=== PATIENT | female | born 1970 | race African-American/Black ===

== ENCOUNTER 2020-08-13 10:06 | Outpatient (REF) | payer OTHER, SELFPAY ==
[2020-08-13 10:58] LABS: MANUAL DIFF FLAG NO
[2020-08-13 11:35] LABS: Basophils Percent Auto 0.3 % (0-2); Eosinophils Absolute Auto 0.1 X10*3/uL (0.0-0.4); Eosinophils Percent Auto 1.5 % (0-4); Hematocrit 33.9 % (37-47); Hemoglobin 11.2 g/dl (12.0-16.0); Imm Gran Abs Auto 0.01 X10*3/uL (0.00-0.03); Imm Gran Pct Auto 0.2 % (0.0-0.4); Lymphocytes Absolute Auto 2.5 X10*3/uL (1.2-4.9); Lymphocytes Percent Auto 41.9 % (20-40); Mean Corpuscular Volume 90.9 fL (80-98); Monocytes Absolute Auto 0.5 X10*3/uL (0.1-1.2); Monocytes Percent Auto 8.5 % (2-11); Neutrophils Absolute Auto 2.8 X10*3/uL (2.0-8.3); Neutrophils Percent Auto 47.6 % (45-73); Platelet Count 209 X10*3/uL (160-400); Red Blood Count 3.73 X10*6/uL (4.20-5.50); Red Cell Distribution Width 15.1 % (11.0-16.0); White Blood Count 5.9 X10*3/uL (4.8-10.8)
[2020-08-13 11:41] LABS: Estimated Average Glucose 94 mg/dL; Hemoglobin A1c % 4.9 %
[2020-08-13 11:42] LABS: Alanine Aminotransferase 14 U/L (0-31); Albumin Level 3.9 g/dL (3.5-5.0); Alkaline Phosphatase 53 U/L (39-117); Aspartate Amino Transferase 13 U/L (5-31); Bilirubin Total 0.7 mg/dL (0.0-1.0); Blood Urea Nitrogen 12 mg/dL (9-16); C Reactive Protein 0.06 mg/dL (< or = 0.50); Calcium 8.6 mg/dL (8.4-10.2); Cholesterol 132 mg/dL; Estimated Glomerular Filt Rate > 60; Glucose Random 93 mg/dL (60-115); HDL Cholesterol 53 mg/dL; Iron 66 mcg/dL (30-160); LDL Cholesterol Calculated 65 mg/dl; Percent Iron Saturation 20 % (15-50); Total Iron Binding Capacity 335 mcg/dL (228-428); Total Protein 6.1 g/dL (6.5-8.0); Triglycerides 70 mg/dL; Unsaturated Iron Binding 269 ug/dL
[2020-08-13 11:56] LABS: Anion Gap 10 (12-20); Carbon Dioxide 26 mmol/L (22-29); Chloride 108 mmol/L (96-108); Potassium 3.7 mmol/l (3.3-5.1); Sodium 140 mmol/L (135-145)
[2020-08-13 12:06] LABS: Ferritin 46 ng/mL (10-250); Vitamin D 25-OH Total 22.3 ng/mL (>30)
[2020-08-13 12:21] LABS: Folate 8.2 ng/mL (> or = 4.0); Vitamin B12 649 pg/mL (200-900)
[2020-08-13 13:06] LABS: TSH reflex Free T4 0.52 mIU/mL (0.32-4.0)
[2020-08-14 08:06] LABS: Insulin Level Total 4.4 uIU/mL
[2020-08-15 02:11] LABS: Calcium (PTHI) 8.7 mg/dL (8.6-10.2); PTHI 39 pg/mL (14-64)
[2020-08-18 22:21] LABS: Vitamin A 40 mcg/dL (38-98)
[2020-08-19 06:40] LABS: Vitamin B1 9 nmol/L (8-30)
[2020-08-19 07:01] LABS: Zinc 67 mcg/dL (60-130)
== END 2020-08-13 10:07 | disposition home or self-care (01) ==
LOC: HO.LAB 10:06
PROVIDERS: PCP Internal Medicine; Visit Provider Physician Assistant
DX: K90.49 Malabsorption due to intolerance, not elsewhere classified (principal)
CPT/HCPCS: 36415; 80053; 80061; 82306; 82607; 82728; 82746; 83036; 83525; 83540; 83970; 84425; 84443; 84590; 84630; 85025; 86140

== ENCOUNTER → 2020-09-08 13:19 | Outpatient (BNVA) | payer OTHER, SELFPAY | PROVIDERS: PCP Internal Medicine; Visit Provider Dietitian, Registered | DX: Z76.89 Persons encountering health services in other specified circumstances (principal) ==

== ENCOUNTER → 2020-11-12 08:06 | Outpatient (BNVA) | payer OTHER, SELFPAY | PROVIDERS: PCP Internal Medicine; Referring Provider Internal Medicine; Visit Provider Internal Medicine | DX: Z76.89 Persons encountering health services in other specified circumstances (principal) ==

== ENCOUNTER → 2021-03-05 08:13 | Outpatient (BNVA) | payer OTHER, SELFPAY | PROVIDERS: PCP Internal Medicine; Visit Provider Physician Assistant | DX: E66.9 Obesity, unspecified (principal); K91.2 Postsurgical malabsorption, not elsewhere classified; Z90.3 Acquired absence of stomach [part of]; Z68.36 Body mass index [BMI] 36.0-36.9, adult | CPT/HCPCS: Q3014 ==

== ENCOUNTER → 2021-05-10 07:58 | Outpatient (BNVA) | payer MEDICAID, SELFPAY | PROVIDERS: Visit Provider Internal Medicine ==

== ENCOUNTER → 2021-08-03 08:13 | Outpatient (BNVA) | payer MEDICAID, SELFPAY | PROVIDERS: PCP Internal Medicine; Visit Provider Physician Assistant Surgical ==

== ENCOUNTER → 2021-08-10 08:44 | Outpatient (BNVA) | payer MEDICAID, SELFPAY | PROVIDERS: PCP Internal Medicine; Visit Provider Physician Assistant Surgical ==

== ENCOUNTER → 2021-09-06 08:08 | Outpatient (BNVA) | payer MEDICAID, SELFPAY | PROVIDERS: PCP Internal Medicine; Visit Provider Physician Assistant Surgical ==

== ENCOUNTER 2021-09-09 13:51 | Outpatient (REF) | payer MEDICAID, SELFPAY ==
[2021-09-09 14:08] LABS: MANUAL DIFF FLAG NO
[2021-09-09 14:17] LABS: Basophils Percent Auto 0.4 % (0-2); Eosinophils Absolute Auto 0.1 X10*3/uL (0.0-0.4); Eosinophils Percent Auto 1.2 % (0-4); Hemoglobin 12.3 g/dl (12.0-16.0); Imm Gran Abs Auto 0.02 X10*3/uL (0.00-0.03); Imm Gran Pct Auto 0.3 % (0.0-0.4); Lymphocytes Absolute Auto 2.7 X10*3/uL (1.2-4.9); Lymphocytes Percent Auto 36.3 % (20-40); Mean Corpuscular HGB Conc 33.2 g/dl (31.0-35.0); Mean Corpuscular Hemoglobin 29.6 pg (27.0-33.0); Mean Corpuscular Volume 89.2 fL (80-98); Mean Platelet Volume 10.1 fL (9.4-12.3); Monocytes Absolute Auto 0.7 X10*3/uL (0.1-1.2); Monocytes Percent Auto 9.8 % (2-11); Neutrophils Absolute Auto 3.9 X10*3/uL (2.0-8.3); Platelet Count 233 X10*3/uL (160-400); Red Blood Count 4.15 X10*6/uL (4.20-5.50); Red Cell Distribution Width 15.1 % (11.0-16.0); White Blood Count 7.6 X10*3/uL (4.8-10.8)
[2021-09-09 14:28] LABS: Estimated Average Glucose 100 mg/dL; Hemoglobin A1c % 5.1 %
[2021-09-09 14:50] LABS: Alanine Aminotransferase 13 U/L (0-31); Alkaline Phosphatase 60 U/L (39-117); Anion Gap 11 (12-20); Aspartate Amino Transferase 12 U/L (5-31); Bilirubin Total 0.8 mg/dL (0.0-1.0); Blood Urea Nitrogen 10 mg/dL (9-16); C Reactive Protein 0.13 mg/dL (< or = 0.50); Carbon Dioxide 25 mmol/L (22-29); Chloride 107 mmol/L (96-108); Cholesterol 172 mg/dL; Estimated Glomerular Filt Rate > 60; Glucose Random 85 mg/dL (60-115); HDL Cholesterol 35 mg/dL; Iron 111 mcg/dL (30-160); LDL Cholesterol Calculated 83 mg/dl; Percent Iron Saturation 31 % (15-50); Potassium 3.7 mmol/L (3.3-5.1); Sodium 139 mmol/L (135-145); Total Iron Binding Capacity 353 mcg/dL (228-428); Total Protein 6.6 g/dL (6.5-8.0); Triglycerides 273 mg/dL; Unsaturated Iron Binding 242 ug/dL
[2021-09-09 15:02] LABS: Ferritin 63 ng/mL (10-250); TSH reflex Free T4 1.32 uIU/mL (0.32-4.0); Vitamin D 25-OH Total 17.7 ng/mL (>30)
[2021-09-09 15:19] LABS: Vitamin B12 752 pg/mL (200-900)
[2021-09-10 16:01] LABS: Calcium (PTHI) 9.2 mg/dL (8.6-10.2); PTHI 36 pg/mL (14-64)
[2021-09-13 13:32] LABS: Vitamin B1 9 nmol/L (8-30)
[2021-09-14 06:47] LABS: Zinc 72 mcg/dL (60-130)
[2021-09-15 01:47] LABS: Vitamin A 40 mcg/dL (38-98)
== END 2021-09-09 13:52 | disposition home or self-care (01) ==
LOC: HO.LAB 13:51
PROVIDERS: PCP Internal Medicine; Visit Provider Physician Assistant Surgical
DX: E66.9 Obesity, unspecified (principal); Z87.19 Personal history of other diseases of the digestive system; Z98.890 Other specified postprocedural states
CPT/HCPCS: 36415; 80053; 80061; 82306; 82607; 82728; 82746; 83036; 83540; 83970; 84425; 84443; 84590; 84630; 85025; 86140

== ENCOUNTER → 2021-09-20 08:07 | Outpatient (BNVA) | payer MEDICAID, SELFPAY | PROVIDERS: PCP Internal Medicine; Visit Provider Physician Assistant Surgical ==

== ENCOUNTER 2024-04-05 11:19 | Outpatient (REF) | payer MEDICAID, SELFPAY ==
[2024-04-05 14:11] LABS: MANUAL DIFF FLAG NO
[2024-04-05 14:34] LABS: Basophils Percent Auto 0.5 % (0-2); Eosinophils Absolute Auto 0.1 X10*3/uL (0.0-0.4); Eosinophils Percent Auto 1.6 % (0-4); Hematocrit 36.5 % (37.0-47.0); Hemoglobin 11.9 g/dl (12.0-16.0); Imm Gran Abs Auto 0.03 X10*3/uL (0.00-0.03); Imm Gran Pct Auto 0.4 % (0.0-0.4); Lymphocytes Absolute Auto 2.1 X10*3/uL (1.2-4.9); Lymphocytes Percent Auto 25.8 % (20-40); Mean Corpuscular HGB Conc 32.6 g/dl (31.0-35.0); Mean Corpuscular Hemoglobin 27.7 pg (27.0-33.0); Mean Corpuscular Volume 85.1 fL (80.0-98.0); Mean Platelet Volume 10.7 fL (9.4-12.3); Monocytes Absolute Auto 0.5 X10*3/uL (0.1-1.2); Monocytes Percent Auto 5.6 % (2-11); Neutrophils Absolute Auto 5.4 x10*3/uL (2.0-8.3); Neutrophils Percent Auto 66.1 % (45-73); Platelet Count 252 X10*3/uL (160-400); Red Blood Count 4.29 X10*6/uL (4.20-5.50); Red Cell Distribution Width 16.1 % (11.0-16.0); White Blood Count 8.2 X10*3/uL (4.8-10.8)
[2024-04-05 14:51] LABS: Alanine Aminotransferase 13 U/L (0-31); Albumin Level 3.6 g/dL (3.5-5.0); Alkaline Phosphatase 73 U/L (39-117); Anion Gap 10 (12-20); Aspartate Amino Transferase 15 U/L (5-31); Bilirubin Total 0.5 mg/dL (0.0-1.0); Blood Urea Nitrogen 14 mg/dL (9-16); Calcium 8.9 mg/dL (8.4-10.2); Carbon Dioxide 26 mmol/L (22-29); Chloride 107 mmol/L (96-108); Cholesterol 165 mg/dL (<200); Estimated Glomerular Filt Rate > 60; Glucose Random 135 mg/dL (60-115); HDL Cholesterol 34 mg/dL (>40); LDL Cholesterol Calculated 87 mg/dL (<100); Potassium 3.2 mmol/L (3.3-5.1); Sodium 140 mmol/L (135-145); Total Protein 6.7 g/dL (6.5-8.0); Triglycerides 221 mg/dL (<150)
[2024-04-05 15:01] LABS: TSH reflex Free T4 1.02 uIU/mL (0.32-4.0)
[2024-04-06 04:44] LABS: ~HepC Num1 0.09 S/CO (0.00-0.79); ~Hepatitis C Antibody Nonreactive (Nonreactive)
== END 2024-04-05 11:20 | disposition home or self-care (01) ==
LOC: HO.CHCLDS 11:19
PROVIDERS: Visit Provider Internal Medicine
DX: J45.20 Mild intermittent asthma, uncomplicated (principal); E66.01 Morbid (severe) obesity due to excess calories; Z68.41 Body mass index [BMI] 40.0-44.9, adult; F17.200 Nicotine dependence, unspecified, uncomplicated; I10 Essential (primary) hypertension
CPT/HCPCS: 36415; 80053; 80061; 84443; 85025; 86803

== ENCOUNTER 2024-04-23 10:49 | Outpatient (REF) | payer OTHER, SELFPAY ==
[2024-04-23 14:33] LABS: Immature Retic Fraction 15.9 % (3.0-15.9); Retic HGB Equivalent 31.2 pg (30.0-35.0); Reticulocyte Percent 1.8 % (0.5-1.8); Reticulocytes Absolute 0.073 X10*6/uL (0.026-0.095)
[2024-04-23 14:37] LABS: Estimated Average Glucose 108 mg/dL; Hemoglobin A1c % 5.4 % (<6.0)
[2024-04-23 14:48] LABS: Anion Gap 11 (12-20); Blood Urea Nitrogen 19 mg/dL (9-16); Calcium 9.2 mg/dL (8.4-10.2); Carbon Dioxide 27 mmol/L (22-29); Chloride 107 mmol/L (96-108); Estimated Glomerular Filt Rate > 60; Glucose Random 92 mg/dL (60-115); Iron 51 mcg/dL (30-160); Percent Iron Saturation 17 % (15-50); Sodium 141 mmol/L (135-145); Total Iron Binding Capacity 305 mcg/dL (228-428); Unsaturated Iron Binding 254 ug/dL
[2024-04-23 15:04] LABS: Ferritin 33 ng/mL (10-250)
[2024-04-26 04:44] LABS: HPV mRNA E6/E7 rflx Not Detected (Not Detected)
== END 2024-04-23 10:50 | disposition home or self-care (01) ==
LOC: HO.CHCLDS 10:49
PROVIDERS: Visit Provider Internal Medicine
DX: D50.9 Iron deficiency anemia, unspecified (principal); E88.819 Insulin resistance, unspecified
CPT/HCPCS: 36415; 80048; 82728; 83036; 83540; 85045; 87624

== ENCOUNTER 2024-04-23 14:36 | Outpatient (REF) | payer MEDICAID, SELFPAY | END 2024-04-23 14:37 | disposition home or self-care (01) | LOC: HO.HHCLNP 14:36 | PROVIDERS: Visit Provider Family Medicine | DX: Z12.4 Encounter for screening for malignant neoplasm of cervix (principal) | CPT/HCPCS: 88142 ==

== ENCOUNTER 2025-02-26 14:29 | Outpatient (REF) | payer OTHER, SELFPAY ==
--- NOTE | ~2025-02-26 | US_ITS ---
CLINICAL HISTORY: LEFT LOWER LEG PAIN Bilateral Ankle-brachial indexs: Systolic pressure differential measured between the brachial and ankle arteries with pulsed Doppler or continuous wave Doppler. Right arm: Right brachial systolic blood pressure is 158 mm Hg Posterior tibial right ankle pressure is 130 mm Hg. Right dorsal pedis artery pressure is 154 Left arm: Left brachial artery systolic pressure is 142 mm of Hg. Left posterior tibial artery pressure is 154 mm of Hg. Left dorsal pedis artery pressure is 150 mm of Hg. Impression: Right posterior tibial artery ankle- brachial index is 0.82, normal. Right anterior tibial artery ankle-brachial index is 0.97, normal Left posterior tibial ankle-brachial index is 0.97, normal. Left anterior tibial ankle-brachial index is 0.95, normal. This document has been electronically signed by: Cruzito Marie MD on 02/27/2025 14:45:06
--- OUTSIDE RECORDS SUMMARY | 2025-02-26 17:13 | XMS_ITS | Encounter Summary ---
Author Organization [employer] Address [address] [facility] 7 [place] [address] Care Team Providers Care Boat Loader Name Role Phone Patricia Espinosa MD Primary Care Provider Encounter Details Date Type Department Care Team ([facility] st Contact Info) Description 05/03/2024 Orders Only [facility] [address] [place], [place] [phone] Patricia Espinosa MD [address] [place] [address] Social History Tobacco Use Types Packs/Day Years Used Date Smoking Tobacco: Every Day Cigarettes 0.3 17 Smokeless Tobacco: Never Comments:2-3 cig a day x the last 17 years Alcohol Use Standard Drinks/Week Comments Never 0 (1 standard drink = 0.6 oz pur e alcohol) Depression Answer Date Recorded Patient Health Questionnaire-9 Score 13 04/04/2024 Patient Health Questionnaire-9 Score 13 04/04/2024 Last PHQ-9: Questionnaire Data Not on file 0 04/04/2024 Housing Stability Answer Date Recorded What is your housing situation today? I have shahla acuna 02/20/[address] you li ve. Do you have problems with any of the following? None of the above 02/20/2024 Food Insecurity Answer Date Recorded Within the past 12 months, y ou worried that your food would run out before you got money to buy more: Never True 02/20/2024 Within the past 12 months,th e food you bought just didn't last and you didn't have enough money to get more: Never True 07/2024 Transportation Answer Date Recorded In the past 12 months, has l ack of transportation kept you from medical appts, meetings, work or from getting things needed for daily living? Yes, it has kept me from medical appointments or getting medications. 02/20/2024 Utilities Answer Date Recorded In the past 12 months, has t he electric, gas, oil or water company threatened to shut off services in your home? No 02/20/2024 Depression Answer Date Recorded Patient Health Questionnaire-2 Score 3 04/04/2024 Comments No Sex and Gender Information Value Date Recorded Sex Assigned at Female 09/12/2022 10:31 AM EDT Legal Sex Female 10:31 AM EDT Gender Identity Female 09/12/2022 10:31 AM EDT Sexual Orientation Straight 09/12/2022 10 :31 AM EDT documented as of this encounter Plan of Treatment Upcoming Encounters Date Type Department Care Team (Late st Contact Info) Description 04/09/2025 10:00 AM EDT Office Visit [facility] [address] [place] [address] Patricia Espinosa MD [address] [place] [address] 05/08/2025 10:30 AM EDT Office Visit [facility] [address] [place] [address] Patricia Espinosa MD [address] [place] [address] documented as of this encounter Visit Diagnoses Not on filedocumented in this encounter Additional Health Concerns Assessment Noted Time PHQ-9 Depression Total Score: 13 024 1:36 PM EDT documented as of this encounter Care Teams Boat Loader Relationship Specialty Start Date End Date Patricia Espinosa MD [address] [place] [address] PCP - General Internal Medicine 04/14/17 documented as of this encounter
--- OUTSIDE RECORDS SUMMARY | 2025-02-26 17:13 | XMS_ITS | Encounter Summary ---
Author Organization [employer] Address [address] [facility] 7 [place] [address] Care Team Providers Care Sql Bi Developer Name Role Phone Patricia Espinosa MD Primary Care Provider [phone] Encounter Details Date Type Department Care Team ([facility] st Contact Info) Description 12/05/2024 Orders Only [facility] [address] [place], [place] [phone] Patricia Espinosa MD [address] [place] [address] Social History Tobacco Use Types Packs/Day Years Used Date Smoking Tobacco: Every Day Cigarettes 0.3 17 Smokeless Tobacco: Never Comments:2-3 cig a day x the last 17 years Alcohol Use Standard Drinks/Week Comments Never 0 (1 standard drink = 0.6 oz pur e alcohol) Depression Answer Date Recorded Patient Health Questionnaire-9 Score 19 12/09/2024 Patient Health Questionnaire-9 Score 19 12/09/2024 Last PHQ-9: Questionnaire Data Not on file 0 12/09/2024 Housing Stability Answer Date Recorded What is your housing situation today? I have shahla acuna 02/20/[address] you li ve. Do you have problems with any of the following? None of the above 02/20/2024 Food Insecurity Answer Date Recorded Within the past 12 months, y ou worried that your food would run out before you got money to buy more: Sometimes True 2024 Within the past 12 months,th e food you bought just didn't last and you didn't have enough money to get more: Sometimes True 12/09/2024 Transportation Answer Date Recorded In the past [...] to shut off services in your home? Yes 12/09/2024 Depression Answer Date Recorded Patient Health Questionnaire-2 Score 4 12/09/2024 Internet Access Answer Date Recorded Internet Access Q1 Yes 12/09/2024 Internet Access Q2 Not on file 12/09/2024 Comments No Sex and Gender Information Value [...] Description 04/09/2025 10:00 AM EDT Office Visit [facility] [address] [place] [address] Patricia Espinosa MD [address] [place] [address] 05/08/2025 10:30 AM EDT Office Visit [facility] [address] [place] [address] Patricia Espinosa MD [address] [place] [address] documented as of this encounter Visit Diagnoses Not on filedocumented in this encounter Additional Health Concerns Assessment Noted Time PHQ-9 Depression Total Score: 13 024 1:36 PM EDT documented as of this encounter Care Teams Sql Bi Developer Relationship Specialty Start Date End Date Patricia Espinosa MD [address] [place] [address] PCP - General Internal Medicine 04/14/17 documented as of this encounter
--- OUTSIDE RECORDS SUMMARY | 2025-02-26 17:13 | XMS_ITS | Encounter Summary ---
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; Microcytic anemia Social History Tobacco Use Types Packs/Day Years Used Date Smoking Tobacco: Every Day Cigarettes 0.3 17 Smokeless Tobacco: Never Comments:2-3 cig a day x the last 17 years Depression Answer Date Recorded Patient Health Questionnaire-9 [...] Patient Health Questionnaire-2 Score 3 04/04/2024 Comments Unknown Sex and Gender Information Value Date Recorded Sex Assigned at Female 09/12/2022 10:31 AM EDT Legal Sex Female 10:31 AM EDT Gender Identity Female 09/12/2022 10:31 AM EDT Sexual Orientation Straight 09/12/2022 10 :31 AM EDT documented as of this encounter Plan of Treatment Upcoming Encounters Date Type Department Care Team (Late st Contact Info) Description 04/09/2025 10:00 AM EDT Office Visit [facility] [address] [place] [address] Patricia Espinosa MD [address] [place] [address] 05/08/2025 10:30 AM EDT Office Visit [facility] [address] [place] [address] Patricia Espinosa MD [address] [place] [address] Scheduled Orders Name Type Priority Associated Diagnoses Orde r Schedule CBC auto differential Lab Routine Microcytic anemia Expected: 04/23/2024 (Approximate), Expires: 04/23/2025 documented as of this encounter Procedures Procedure Name Priority Date/Time Associated Diagnosis Comments IRON AND TOTAL IRON BINDING CAPACITY Routine 04/23/2024 10:57 AM EDT Microcytic anemia FERRITIN Routine 04/23/2024 10:57 AM EDT Microcytic anemia BASIC METABOLIC PANEL Routine 04/23/2024 10:57 AM EDT 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 RETICULOCYTE COUNT Routine 04/23/2024 10 :51 AM EDT Microcytic anemia HEMOGLOBIN A1C Routine 04/23/2024 10:51 AM EDT 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 HPV MRNA E6/E7 REFLEX TO HPV 16, 18/45 Routine 04/23/2024 10:40 AM EDT Hypokalemia documented in this encounter Results * Ferritin (04/23/2024 10:57 AM EDT) Ferritin 33 10 - 250 ng/mL [facility] Blood Venous blood specimen / Unknown 04/23/2024 10:57 AM EDT 04/23/2024 2:22 PM EDT us Patricia Espinosa MD LAB BLOOD ORDERABLES Final Result Performing Organization Address City/[facility]/ZIP Co de Phone Number [facility] [address] [place] [phone] * Iron And Total Iron Binding Capacity (04/23/2024 10:57 AM EDT) Pathologist [facility] Iron 51 30 - 160 mcg/dL [facility] Total Iron Binding Capacity 305 228 - 428 mcg/dL [facility] Percent Iron Saturation 17 15 - 50 % [facility] Unsaturated Iron Binding 254 ug/dL [facility] Blood Venous blood specimen / Unknown 04/23/2024 10:57 AM EDT 04/23/2024 2:22 PM EDT us Patricia Espinosa MD LAB BLOOD ORDERABLES Final Result Performing Organization Address City/[facility] Co de Phone Number [facility] [address] [place] [phone] * (ABNORMAL) Basic Metabolic Panel (04/23/2024 10:57 AM EDT) Pathologist [facility] Sodium 141 135 - 145 mmol/L [facility] Potassium 4.0 3.3 - 5.1 mmol/L [facility] Chloride 107 96 - 108 mmol/L [facility] Carbon Dioxide 27 22 - 29 mmol/L [facility] Anion Gap 11(L) 12 - 20 [facility] Urea Nitrogen (BUN) 19(H) 9 - 16 mg/dL [facility] Creatinine, Serum 0.75 0.5 - 1.4 mg/dL [facility] Estimated Glomerular Filt Rate >60 [facility] Comment:NOTE: For -Am erican individuals, multiply the result by 1.210.Chronic Kidney Disease: Estimated GFR < 60 mL/min/1.17d7Lerusu Kidney Disease: Estimated GFR < 15 mL/min/1.73m2 Glucose 92 60 - 115 mg/dL [facility] Calcium 9.2 8.4 - 10.2 mg/dL [facility] Blood Venous blood specimen / Unknown 04/23/2024 10:57 AM EDT 04/23/2024 2:22 PM EDT us Patricia Espinosa MD LAB BLOOD ORDERABLES Final Result [facility] [address] [place] [phone] * Hemoglobin A1c (04/23/2024 10:51 AM EDT) Hemoglobin A1c 5.4 <6.0 % [facility] Comment:Hemoglobin A1C Refer ence Range Adults: 4.8 - 6.0 % Non diabetic: < 6.0 % Goal: < 7.0 %Additional Action Suggested: > 8.0 %Note: Hemoglobin A1c results are invalid for patients with abnormal amounts of HbF. Blood transfusions may impact the HbA1c concentration in the patient sample. Estimated Average Glucose 108 mg/dL [facility] Comment:eAG = Estimated ave rage glucose which is %A1C expressed asaverage glucose, using the formula of the D0P-UnbcldjUlkjira Glucose study (ADAG), Diabetes Care, Vol.31,#8,Jun. 2007 Blood Venous blood specimen / Unknown 04/23/2024 10:51 AM EDT 04/23/2024 2:22 PM EDT Patricia Espinosa MD LAB BLOOD ORDERABLES Final Result Performing Organization Address [facility] de Phone Number [facility] [address] [place] [phone] * Reticulocyte Count (04/23/2024 10:51 AM EDT) Reticulocytes Absolute 0.073 0.026 - 0.095 X10*6/uL [facility] Immature Retic Fraction 15.9 3.0 - 15.9 % [facility] Retic HGB Equivalent 31.2 30.0 - 35.0 pg [facility] Reticulocyte Percent 1.8 0.5 - 1.8 % [facility] Blood Venous blood specimen / Unknown 04/23/2024 10:51 AM EDT 04/23/2024 2:22 PM EDT Patricia Espinosa MD LAB BLOOD ORDERABLES Final Result Performing Organization Address [facility] de Phone Number [facility] [address] [place] [phone] * HPV mRNA E6/E7 w/Reflex to HPV Genotypes 16, 18/45 (04/23/2024 10:40 AM EDT) HPV nRNA E6/E7 Not Detected Not Detected [facility] Comment:Methodology: Transcr iption-Mediated AmplificationThis assay detects E6/E7 viral messenger RNA (mRNA) from 14high-risk HPV types (16,18,31,33,35,39,45,51,52,56,58,59,66,68).Cervical sources are required for HPV testing.If a vaginal source from a patient who has had atotal hysterectomy with removal of cervix wassubmitted, please contact the testing laboratoryfor alternative testing options.For additional information, please refer [email or web address](This link if provided for information/educational purposes only.)THIS TEST WAS PERFORMED AT:[facility] [place] [phone] DELUNA MD HPV mRNA E6/E7 TNP [facility] HPV 16 RNA [facility] HPV 18/45 RNA [facility] 04/23/2024 10:4 0 AM EDT 04/24/2024 11:38 AM EDT Patricia Espinosa MD LAB CYTOLOGY ORDERABLES Fin al Result [facility] [address] [place] [phone] documented in this encounter Visit Diagnoses Diagnosis Hypokalemia- Primary Hypopotassemia 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
--- OUTSIDE RECORDS SUMMARY | 2025-02-26 17:13 | XMS_ITS | Clinical Summary ---
Author Organization [employer] Address [address] [facility] [address] [place] [address] Care Team Providers Care Control Chemist Name Role Phone Patricia Espinosa MD Primary Care Provider Allergies Active Allergy Reactions Criticality Noted Date Comments Coconut Fatty Acid 07/30/2019 Hydrocodone 04/14/2017 Other reaction(s): breathing problems Marijuana (Cannabis Sativa) 07/30/20 19 Penicillins Rash Low 04/14/2017 Medications * This document contains information received from the source organization and may not represent a complete record from that organization. Diclofenac Sodium (Voltaren) 1 % gelIndications:L ateral epicondylitis of left elbow To apply to the affected area 4 times a day 100 g 01/09/20 24 Active metoprolol succinate XL (Toprol-XL) 25 MG 24 hr tabletIndication s:Essential (primary) hypertension TAKE ONE TABLET EVERY MORNING 90 tablet 1 03/07/20 24 Active albuterol 108 (90 Base) MCG/ACT inhalerIndicatio ns:Mild intermittent asthma without complication Inhale 2 puffs every 4 (four) hours if needed for wheezing. 18 g 04/04/20 24 025 Active nicotine polacrilex (Nicorette) 4 MG gumIndications:S moking Chew 1 each (4 mg) if needed for smoking cessation. 100 each 04/04/20 24 Active amLODIPine (Norvasc) 10 MG tabletIndication s:Primary hypertension Take 1 tablet (10 mg) by mouth Once per day. 30 tablet 11 04/04/20 24 025 Active FeroSul 325 (65 Fe) MG tabletIndication s:Microcytic anemia TAKE ONE TABLET EVERY MORNING WITH BREAKFAST. DO NOT BREAK, CRUSH, DISSOLVE OR CHEW 90 tablet 1 07/18/20 24 Active hydroCHLOROthiaz bulmaro (HYDRODiuril) 25 MG tablet TAKE ONE TABLET EVERY MORNING 30 tablet 5 12/09/19 25 Active hydrOXYzine pamoate (Vistaril) 50 MG capsuleIndicatio ns:Bipolar disorder, current episode mixed, moderate (CMS/HCC),PTSD (post-traumatic stress disorder),Panic disorder Take 1 capsule (50 mg) by mouth every 8 (eight) hours if needed for itching. 90 capsule 3 12/09/19 25 025 Active ARIPiprazole (Abilify) 5 MG tabletIndication s:Bipolar disorder, current episode mixed, moderate (CMS/HCC) Take 1 tablet (5 mg) by mouth Once per day. 30 tablet 3 12/09/19 25 025 Active escitalopram (Lexapro) 20 MG tabletIndication s:Bipolar disorder, current episode mixed, moderate (CMS/HCC) Take 1 tablet (20 mg) by mouth Once per day. 30 tablet 2 12/09/19 25 025 Active metFORMIN (Glucophage) 500 MG tabletIndication s:Polycystic ovarian syndrome TAKE ONE TABLET IN THE MORNING AND EVENING 60 tablet 11 12/24/19 25 Active Semaglutide-Weig ht Management (Wegovy) 0.25 MG/0.5ML solution auto-injectorInd ications:Class 3 severe obesity due to excess calories without serious comorbidity with body mass index (BMI) of 40.0 to 44.9 in adult 0.25 mg once a week 2 mL 1 02/04/20 25 Active Semaglutide-Weig ht Management (Wegovy) 0.25 MG/0.5ML solution auto-injectorInd ications:Class 3 severe obesity due to excess calories without serious comorbidity with body mass index (BMI) of 40.0 to 44.9 in adult 0.25 mg once a week 2 mL 1 04/04/20 24 025 Discontinued(Re order (will not trigger notification to Pharmacy)) Active Problems Problem Noted Date Diagnosed Date Severe anxiety 12/31/2024 Bipolar disorder, current episode mixed, moderat e 12/09/2024 Panic disorder 12/09/2024 Asthma 04/14/2017 Sleep apnea 04/14/2017 PTSD (post-traumatic stress disorder) 04/14/2017 Obesity 04/14/2017 Hypertensive disorder 04/14/2017 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 Date Type Department Care Team Description 02/07/2025 Telephone [facility] [address] [place] [address] Patricia Espinosa MD Prior Authorization 02/03/2025 Orders Only [facility] [address] [place] [address] Patricia Espinosa MD Lower limb pain, diffuse, left (Primary Dx); Class 3 severe obesity due to excess calories without serious comorbidity with body mass index (BMI) of 40.0 to 44.9 in adult (CMS/HCC) 01/31/2025 4:00 PM EDT Telemedicine [facility] [address] [place] [address] Patricia Espinosa MD Primary hypertension (Primary Dx); Blurry vision, bilateral 01/31/2025 Travel 12/23/2024 Refill [facility] [address] [place] [address] Dianne Barnes MD Polycystic ovarian syndrome 12/09/2024 2:30 PM EST Office Visit [facility] [address] [place] [address] Patricia Espinosa MD Bipolar disorder, current episode mixed, moderate (CMS/HCC) (Primary Dx); PTSD (post-traumatic stress disorder); Panic disorder; Smoking; Primary hypertension; Encounter for immunization 12/09/2024 Travel 12/07/2024 Refill [facility] [address] [place] [address] Patricia Espinosa MD 12/05/2024 Orders Only [facility] [address] [place] [address] Patricia Espinosa MD 12/04/2024 Telephone [facility] [address] [place] [address] Patricia Espinosa MD Medication Question from Last 3 Months Immunizations Name Administration Dates Next Due INFLUENZA INJECTABLE QUADRIV ALANT CCIIV4 MDCK Multi-dose vial 08/13/2019 Influenza injectable quadriv alent IIV4 with preservative 07/26/2018 Influenza injectable quadrivalent preservative f ree 08/17/2015 Influenza, seasonal, injectable, preservative fr ee 12/09/2024 MMR 12/11/2013 Pneumococcal Conjugate PCV 20 04/04/2024 Td (adult), 5 Lf tetanus tox oid, preservative free, adsorbed 11/18/2003 Tdap 04/04/2024,12/23/2011 Varicella 12/11/2013 Zoster, Recombinant 04/23/2024 Family History Medical History Relation Name Comments Hypertension Father h/o hip replacement. Father Heart disease Mother Hypertension Mother Lung cancer Mother Relation Name Status Comments Father Mother Social History Tobacco Use Types Packs/Day Years Used Date Smoking Tobacco: Every Day Cigarettes 0.3 17 Smokeless Tobacco: Never Tobacco Cessation:Ready to Q uit: Not Asked; Counseling Given: Not Answered Comments:2-3 cig a day x the last 17 years Alcohol Use Standard Drinks/Week Comments Never 0 (1 standard drink = 0.6 oz pur e alcohol) Depression Answer Date Recorded Patient Health Questionnaire-9 Score 18 12/31/2024 Patient Health Questionnaire-9 Score 18 12/31/2024 Last PHQ-9: Questionnaire Data Not on file 0 12/31/2024 Housing Stability Answer Date Recorded What is [...] Date Recorded Patient Health Questionnaire-2 Score 4 12/31/2024 Internet Access Answer Date Recorded Internet Access Q1 Yes 12/09/2024 Internet Access Q2 Not on file 12/09/2024 Comments No Sex and Gender Information Value Date Recorded Sex Assigned at Female 09/12/2022 10:31 AM EDT Legal Sex Female 10:31 AM EDT Gender Identity Female 09/12/2022 10:31 AM EDT Sexual Orientation Straight 09/12/2022 10 :31 AM EDT Last Filed Vital Signs Vital Sign Reading Time Taken Comments Blood Pressure 163/80 12/09/2024 2:47 PM EST Pulse 56 12/09/2024 2:47 PM EST Temperature 36.1 ??C (96.9 ??F) 12/09/2024 2:47 PM ES T Respiratory Rate 20 12/09/2024 2:47 PM EST Oxygen Saturation 100% 12/09/2024 2:47 PM EST Inhaled Oxygen Concentration - - Weight 109 kg (240 lb) 12/09/2024 2:47 PM EST Height 152.4 cm (5') 12/09/2024 2:47 PM EST Body Mass Index 46.87 12/09/2024 2:47 PM EST Plan of Treatment Upcoming Encounters Date Type Department Care Team (Late st Contact Info) Description 04/09/2025 10:00 AM EDT Office Visit [facility] [address] [place] [address] Patricia Espinosa MD [address] [place] [address] 05/08/2025 10:30 AM EDT Office Visit [facility] [address] [place] [address] Patricia Espinosa MD [address] [facility] [place] [address] Health Maintenance Due Date Last Done Comments CT Colonography 1972 Colonoscopy 1972 FIT 1972 FOBT 1972 Sigmoidoscopy 1972 Family Planning (PISQ) 1987 Hepatitis B Vaccines (1 of 3 - 19+ 3-dose series) 1991 Mammogram 2012 Zoster Vaccines (2 of 2) 06/18/2024 04/23/2024 Depression Monitoring 06/30/2025 12/31/2024, 025 Alcohol/Substance Use Screening 12/09/2025 12/09/2024 COVID-19 Vaccine ( season) 2025 08/25/2021, 08/04/2021 Postponed from 07/14/2024 (Patient Refused) SDOH Screening 12/09/2025 12/09/2024 Depression Screening 12/31/2025 12/31/2024, 12/31/19 25 Tobacco Screening 01/31/2026 01/31/2025 Colorectal Cancer Screening 04/29/2027 FIT DNA/Cologuard 04/29/2027 04/29/2024 Lipid Panel 04/05/2029 04/05/2024 Cervical Cancer Screening 04/23/2029 HPV/Cotest 04/23/2029 04/23/2024, 08/29/2017 Pap Smear 04/23/2029 04/23/2024 DTaP/Tdap/Td Vaccines (3 - Td or Tdap) 04/04/2034 04/04/2024, 12/23/2011, 11/18/2003 RSV Patients and Patients Aged 60 years or older (1 - 1-dose 75+ series) 2047 Pneumococcal Vaccine: 50+ Years Completed 04/04/2024 Hepatitis C Screening Completed 04/05/2024 Influenza Vaccine Completed 12/09/2024, , 07/26/2018, Additional history exists HIB Vaccines Aged Out No longer eligi ble based on patient's age to complete this topic HIV Screening Discontinued HPV Vaccines Aged Out No longer eligi ble based on patient's age to complete this topic Hepatitis A Vaccines Aged Out No long er eligible based on patient's age to complete this topic IPV Vaccines Aged Out No longer eligi ble based on patient's age to complete this topic Meningococcal Vaccine Aged Out No jose c ayo eligible based on patient's age to complete this topic RSV under 20 months Aged Out No longe r eligible based on patient's age to complete this topic Rotavirus Vaccines Aged Out No longer eligible based on patient's age to complete this topic Procedures Procedure Name Priority Date/Time Associated Diagnosis Comments LAB COLOGUARD?? COLON CANCER SCREEN Routine 04/29/2024 12:14 PM EDT Screening for colon cancer HPV MRNA E6/E7 REFLEX TO HPV 16, 18/45 Routine 04/23/2024 10:40 AM EDT Hypokalemia PAP SMEAR Routine 04/23/2024 10:40 AM EDT Cervical cancer screening HEPATITIS C AB W/REFL TO HCV RNA, QN, PCR Routine 04/05/2024 11:21 AM EDT Mild intermittent asthma without complication Primary hypertension Smoking Class 3 severe obesity due to excess calories without serious comorbidity with body mass index (BMI) of 40.0 to 44.9 in adult (CMS/HCC) LIPID PANEL, STANDARD Routine 04/05/2024 11:21 AM EDT Mild intermittent asthma without complication Primary hypertension Smoking Class 3 severe obesity due to excess calories without serious comorbidity with body mass index (BMI) of 40.0 to 44.9 in adult (CMS/HCC) from Last 3 Months or Most Recently Relevant to Health Maintenance Results * Cologuard?? colon cancer screening (04/29/2024 12:14 PM EDT) Cologuard Result Negative Negative 05/02/20 5:49 PM EDT [facility] (CLIA #:[id number]) Comment: NEGATIVE TEST RESULT. A negative Cologuard result indicates a low likelihood that a colorectal cancer (CRC) or advanced adenoma (adenomatous polyps with more advanced pre-malignant features) ??is present. The chance that a person with a negative Cologuard test has a colorectal cancer is less than 1 in 1500 (negative predictive value >99.9%) or has an ??advanced adenoma is less than ??5.3% (negative predictive value 94.7%). These data are based on a prospective cross-sectional study of 10,000 individuals at average risk for colorectal cancer who were screened with both Cologuard and colonoscopy. (Alban Villarreal al, N Engl J Med 2014;370(14):1286- 1297) The normal value (reference range) for this assay is negative. COLOGUARD RE-SCREENING RECOMMENDATION: Periodic colorectal cancer screening is an important part of preventive healthcare for asymptomatic individuals at average risk for colorectal cancer. ??Following a negative Cologuard result, the [place] [employer] and U.S. Multi-Society Task Force screening guidelines recommend a Cologuard re-screening interval of 3 years. References: [place] [employer] Guideline for Colorectal Cancer Screening: https://www.cancer.org/cancer/aowtb-aouhgn-jkdljm/fampuojfd-lodycezmo-ymfiocb/ac s-rec ommendations.html.; Weston DK, Niki CR, Christiano ShelleyK, Colorectal Cancer Screening: Recommendations for Physicians and Patients from the U.S. Multi-Society Task Force on Colorectal Cancer Screening , Am J Gastroenterology 2017; 112:3587-1550. TEST DESCRIPTION: Composite algorithmic analysis of stool DNA-biomarkers with hemoglobin immunoassay. ?? Quantitative values of individual biomarkers are not reportable and are not associated with individual biomarker result reference ranges. Cologuard is intended for colorectal cancer screening of adults of either sex, 45 years or older, who are at average-risk for colorectal cancer (CRC). Cologuard has been approved for use by the U.S. FDA. The performance of Cologuard was established in a cross sectional study of average-risk adults aged 50-84. Cologuard performance in patients ages 45 to 49 years was estimated by sub-group analysis of near-age groups. Colonoscopies performed for a positive result may find as the most clinically significant lesion: colorectal cancer [4.0%], advanced adenoma (including sessile serrated polyps greater than or equal to 1cm diameter) [20%] or non- advanced adenoma [31%]; or no colorectal neoplasia [45%]. These estimates are derived from a prospective cross-sectional screening study of 10,000 individuals at average risk for colorectal cancer who were screened with both Cologuard and colonoscopy. (Alban Villarreal al, N Engl J Med 2014;370(14):7495-5769.) Cologuard may produce a false negative or false positive result (no colorectal cancer or precancerous polyp present at colonoscopy follow up). A negative Cologuard test result does not guarantee the absence of CRC or advanced adenoma (pre-cancer). The current Cologuard screening interval is every 3 years. ([place] [employer] and U.S. Multi-Society Task Force). Cologuard performance data in a 10,000 patient pivotal study using colonoscopy as the reference method can be accessed at the following location: www.[employer]/results. Additional description of the Cologuard test process, warnings and precautions can be found at www.[employer]. Stool specimen (specimen) 04/29/2024 12:14 PM EDT 04/30/2024 10:34 AM EDT Patricia Espinosa MD LAB MOLECULAR DIAGNOSTICS O RDERABLES Final Result [facility] (CLIA #:[id number]) [address] [place] [address], * HPV mRNA E6/E7 w/Reflex to HPV Genotypes 16, 18/45 (04/23/2024 10:40 AM EDT) HPV nRNA E6/E7 Not Detected Not Detected [facility] Comment:Methodology: Transcr iption-Mediated AmplificationThis assay detects E6/E7 viral messenger RNA (mRNA) from 14high-risk HPV types (16,18,31,33,35,39,45,51,52,56,58,59,66,68).Cervical sources are required for HPV testing.If a vaginal source from a patient who has had atotal hysterectomy with removal of cervix wassubmitted, please contact the testing laboratoryfor alternative testing options.For additional information, please refer tohttp://education.[employer]/faq/ROA574s1(This link if provided for information/educational purposes only.)THIS TEST WAS PERFORMED AT:[facility] [address] [id number] DELUNA MD HPV mRNA E6/E7 TNP [facility] HPV 16 RNA TNP [facility] HPV 18/45 RNA TNP [facility] 04/23/2024 10:4 0 AM EDT 04/24/2024 11:38 AM EDT us Patricia Espinosa MD LAB CYTOLOGY ORDERABLES Fin al Result [facility] [address] [place] [address] [phone] * Pap Smear (04/23/2024 10:40 AM EDT) Swab Cervical swab / Unknown 04/23/2024 10:40 AM EDT 04/24/2024 6:00 AM EDT Narrative [facility] - 05/12/2024 3:50 PM EDT ----- ------- Name: Sofya Aragon ?Age/Sex: 53/F ? : 1970 Unit#: [id number] ?? Attend Dr: Jessica Bain MD ?Re04/23/24 ?Status: DEP REF ? [facility] ? Disch: ? ----- ------- SPEC : [id number] ?RECD: 04/24/24 ? STATUS: ??SOUT ? REQ NUM: [id number] ? KENDRA: 04/23/24 ? SUBM DR: Jessica Bain MD ? ENTERED: ??04/24/24 ?SP TYPE: Pap Smr ?OTHR : ? ORDERED: ??Pap Smear ? Interpretation ?? Satisfactory for evaluation. ?? Negative for intraepithelial lesion or malignancy. ? HPV mRNA E6/E7: ?NOT DETECTED ? This assay detects E6/E7 viral messenger RNA (mRNA) from 14 high-risk HPV types (16, 18, ?? 31, 33, 35, 39, 45, 51, 52, 56, 58, 59, 66, 68) ? HPV testing performed by [facility], [place], [place]. ??See reference laboratory ?? portion of the EMR for entire report. ?Clinical Information LMP: 04/18/24 Previous PAP test: Unknown date/findings ? Material Received ?? ThinPrep-Cervical ----- ------- Signed (signature on file) Luisa Maurice 05/12/24 1550 ? ----- ------- ? END OF REPORT ? us Jessica Bain MD LAB CYTOLOGY ORDERABLES Final Result [facility] [address] [place] [phone] * Hepatitis C Antibody with Reflex to HCV, RNA, Quantitative, Real-Time PCR (04/05/2024 11:21 AM EDT) Hepatitis C Antibody Nonreactive Nonreactive [facility] Comment:Antibodies to HCV no t detected; does not exclude early acuteHCV infection. Blood Venous blood specimen / Unknown 04/05/2024 11:21 AM EDT 04/05/2024 2:06 PM EDT us Patricia Espinosa MD LAB BLOOD ORDERABLES Final Result Performing Organization Address [facility] Co de Phone Number [facility] [address] [place] [address] [phone] * (ABNORMAL) Lipid Panel, Standard (04/05/2024 11:21 AM EDT) Triglycerides 221(H) <150 mg/dL [facility] Comment:Desirable Triglyceri de: less than 150 mg/dLBorderline High Triglyceride 150-199 mg/dLHigh Triglyceride: 200-499 mg/dLVery High Triglyceride: greater than or equal to 5OO mg/dL Cholesterol 165 <200 mg/dL [facility] Comment:Desirable Cholestero l: less than 200 mg/dLBorderline High Cholesterol: 200-239 mg/dLHigh Cholesterol: greater than 239 mg/dL LDL Cholesterol Calculated 87 <100 mg/dL [facility] Comment:Desirable LDL: less than 100 mg/dLNear Optimal/Above Optimal LDL: 110- 129 mg/dLBorderline High LDL: 130-159 mg/dLHigh LDL: 160-189 mg/dLVery High LDL: greater than or equal to 190 mg/dL HDL Cholesterol 34(L) >40 mg/dL [facility] Comment:Desirable HDL: great er than 40 mg/dL Note: This HDL assay may give artificially low results in patients with liver disease. Blood Venous blood specimen / Unknown 04/05/2024 11:21 AM EDT 04/05/2024 2:06 PM EDT us Patricia Espinosa MD LAB BLOOD ORDERABLES Final Result Performing Organization Address [facility]/ZIP Co de Phone Number [facility] [address] [place] [phone] from Last 3 Months or Most Recently Relevant to Health Maintenance Insurance [id number] Care Teams Control Chemist Relationship Specialty Start Date End Date Patricia Espinosa MD [address] [place] [phone] PCP - General Internal Medicine 04/14/17
--- OUTSIDE RECORDS SUMMARY | 2025-02-26 17:13 | XMS_ITS | Encounter Summary ---
Author Organization [facility] [employer] Address [address] [place] [address] Care Team Providers Care Cleaning Attendant Name Role Phone Patricia Espinosa MD Primary Care Provider [phone] Encounter Details Date Type Department Care Team (Late Contact Info) Description 03/16/2023 Orders Only [facility] [address] [place] [address] Nellie Jerez LPN Social History Tobacco Use Types Packs/Day Years Used Date Smoking Tobacco: Never Assessed Comments Unknown Sex and Gender Information Value Date Recorded Sex Assigned at Female 09/12/2022 10:31 AM EDT Legal Sex Female 10:31 AM EDT Gender Identity Female 09/12/2022 10:31 AM EDT Sexual Orientation Straight 09/12/2022 10 :31 AM EDT documented as of this encounter Plan of Treatment Upcoming Encounters Date Type Department Care Team ([facility] Contact Info) Description 04/09/2025 10:00 AM EDT Office Visit [facility] [address] [place] [address] Patricia Espinosa MD [address] [place] [address] 05/08/2025 10:30 AM EDT Office Visit [facility] [address] [place] [address] Patricia Espinosa MD [address] [place] [address] documented as of this encounter Visit Diagnoses Not on filedocumented in this encounter Care Teams Cleaning Attendant Relationship Specialty Start Date End Date Patricia Espinosa MD [address] [place] [phone] PCP - General Internal Medicine 04/14/17 documented as of this encounter
== END 2025-02-26 14:30 | disposition home or self-care (01) ==
LOC: HO.US 14:29
PROVIDERS: PCP Internal Medicine; Visit Provider Internal Medicine
DX: M79.605 Pain in left leg (principal)
CPT/HCPCS: 93923

== ENCOUNTER → 2025-02-26 15:15 | Outpatient (BNV) | payer OTHER, SELFPAY | PROVIDERS: PCP Internal Medicine; Visit Provider Radiology Diagnostic Radiology | DX: M79.605 Pain in left leg (principal) | CPT/HCPCS: 93923 ==

== ENCOUNTER 2025-05-08 11:25 | Outpatient (REF) | payer OTHER, SELFPAY ==
--- OUTSIDE RECORDS SUMMARY | 2025-05-08 13:47 | XMS_ITS | Encounter Summary ---
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; [...] Care Team (Late st Contact Info) Description 05/21/2025 2:00 PM EDT Office Visit [facility] OPTOMETRY [address] [place] [address] TarkaYisel, OD [address] [place] [address] 06/05/2025 10:45 AM EDT Office Visit [facility] CH[facility] MED & PEDS [address] [place] [address] Patricia Espinosa MD [address] [place] [address] Scheduled Orders Name Type Priority Associated Diagnoses [...] EDT) Ferritin 33 10 - 250 ng/mL [facility] Blood Venous blood specimen / Unknown 04/23/2024 10:57 AM EDT 04/23/2024 2:22 PM EDT us Patricia Espinosa MD LAB BLOOD ORDERABLES Final Result Performing Organization Address City/[facility]/ZIP Co de Phone Number [facility] [address] [place] [phone] * Iron And Total Iron Binding Capacity (04/23/2024 10:57 AM EDT) Iron 51 30 - 160 mcg/dL [facility] Total Iron Binding Capacity 305 228 - 428 mcg/dL [facility] Percent Iron Saturation 17 15 - 50 % [facility] Unsaturated Iron Binding 254 ug/dL [facility] Blood Venous blood specimen / Unknown 04/23/2024 10:57 AM EDT 04/23/2024 2:22 PM EDT Patricia Espinosa MD LAB BLOOD ORDERABLES Final Result Performing Organization Address City/[facility]/ZIP Co de Phone Number [facility] [address] [place] [address] [phone] * (ABNORMAL) Basic Metabolic Panel (04/23/2024 10:57 AM EDT) Sodium 141 135 - 145 mmol/L [facility] Potassium 4.0 3.3 - 5.1 mmol/L [facility] Chloride 107 96 - 108 mmol/L [facility] Carbon Dioxide 27 22 - 29 mmol/L [facility] Anion Gap 11(L) 12 - 20 [facility] Urea Nitrogen (BUN) 19(H) 9 - 16 mg/dL [facility] Creatinine, Serum 0.75 0.5 - 1.4 mg/dL [facility] Estimated Glomerular Filt Rate >60 [facility] Comment:NOTE: For -Am erican individuals, multiply the result by 1.210.Chronic Kidney Disease: Estimated GFR < 60 mL/min/1.20b5Aliyyy Kidney Disease: Estimated GFR < 15 mL/min/1.73m2 Glucose 92 60 - 115 mg/dL [facility] Calcium 9.2 8.4 - 10.2 mg/dL [facility] Blood Venous blood specimen / Unknown 04/23/2024 10:57 AM EDT 04/23/2024 2:22 PM EDT Patricia Espinosa MD LAB BLOOD ORDERABLES Final Result [facility] [address] [place] [address] [phone] * Hemoglobin A1c (04/23/2024 10:51 AM EDT) Hemoglobin A1c 5.4 <6.0 % [facility] Comment:Hemoglobin A1C Refer ence Range Adults: 4.8 - 6.0 % Non diabetic: < 6.0 % Goal: < 7.0 %Additional Action Suggested: > 8.0 %Note: Hemoglobin A1c results are invalid for patients with abnormal amounts of HbF. Blood transfusions may impact the HbA1c concentration in the patient sample. Estimated Average Glucose 108 mg/dL [facility] Comment:eAG = Estimated ave rage glucose which is %A1C expressed asaverage glucose, using the formula of the J6O-TmktrtxGwhhhlz Glucose study (ADAG), Diabetes Care, Vol.31,#8,Jun. 2007 Blood Venous blood specimen / Unknown 04/23/2024 10:51 AM EDT 04/23/2024 2:22 PM EDT Patricia Espinosa MD LAB BLOOD ORDERABLES Final Result Performing Organization Address [facility] Co de Phone Number [facility] [address] [place] [phone] * Reticulocyte Count (04/23/2024 10:51 AM EDT) Reticulocytes Absolute 0.073 0.026 - 0.095 X10*6/uL [facility] Immature Retic Fraction 15.9 3.0 - 15.9 % [facility] Retic HGB Equivalent 31.2 30.0 - 35.0 pg [facility] Reticulocyte Percent 1.8 0.5 - 1.8 % [facility] Blood Venous blood specimen / Unknown 04/23/2024 10:51 AM EDT 04/23/2024 2:22 PM EDT Patricia Espinosa MD LAB BLOOD ORDERABLES Final Result Performing Organization Address [facility] de Phone Number [facility] [address] [place] [phone] * HPV mRNA E6/E7 w/Reflex to HPV Genotypes 16, 18/45 (04/23/2024 10:40 AM EDT) HPV nRNA E6/E7 Not Detected Not Detected [facility] Comment:Methodology: Transcr iption-Mediated AmplificationThis assay detects E6/E7 viral messenger RNA (mRNA) from 14high-risk HPV types (16,18,31,33,35,39,45,51,52,56,58,59,66,68).Cervical sources are required for HPV testing.If a vaginal source from a patient who has had atotal hysterectomy with removal of cervix wassubmitted, please contact the testing laboratoryfor alternative testing options.For additional information, please refer tohttp://education.[employer]/faq/BHT428f8(This link if provided for information/educational purposes only.)THIS TEST WAS PERFORMED AT:[employer] [place] [phone] DELUNA MD HPV mRNA E6/E7 [facility] HPV 16 RNA [facility] HPV 18/45 RNA [facility] 04/23/2024 10:4 0 AM EDT 04/24/2024 11:38 AM EDT Patricia Espinosa MD LAB CYTOLOGY ORDERABLES Fin al Result [facility] [address] [place] [phone] documented in this encounter Visit Diagnoses Diagnosis Hypokalemia- Primary Hypopotassemia 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
[2025-05-08 14:30] LABS: MANUAL DIFF FLAG NO
[2025-05-08 14:37] LABS: Basophils Absolute Auto 0.1 X10*3/uL (0.0-0.2); Basophils Percent Auto 0.8 % (0-2); Eosinophils Absolute Auto 0.2 X10*3/uL (0.0-0.4); Eosinophils Percent Auto 2.7 % (0-4); Hematocrit 34.8 % (37.0-47.0); Hemoglobin 11.6 g/dl (12.0-16.0); Imm Gran Abs Auto 0.03 X10*3/uL (0.00-0.03); Imm Gran Pct Auto 0.5 % (0.0-0.4); Lymphocytes Absolute Auto 1.9 X10*3/uL (1.2-4.9); Lymphocytes Percent Auto 29.5 % (20-40); Mean Corpuscular HGB Conc 33.3 g/dl (31.0-35.0); Mean Corpuscular Hemoglobin 29.1 pg (27.0-33.0); Mean Corpuscular Volume 87.2 fL (80.0-98.0); Mean Platelet Volume 10.3 fL (9.4-12.3); Monocytes Absolute Auto 0.6 X10*3/uL (0.1-1.2); Monocytes Percent Auto 9.8 % (2-11); Neutrophils Absolute Auto 3.6 x10*3/uL (2.0-8.3); Neutrophils Percent Auto 56.7 % (45-73); Platelet Count 260 X10*3/uL (160-400); Red Blood Count 3.99 X10*6/uL (4.20-5.50); White Blood Count 6.3 X10*3/uL (4.8-10.8)
[2025-05-08 15:06] LABS: Creatinine Urine 120.68 mg/dL; Microalbum/Creatinine Ratio Ur 49.7 ug/mg cr (<30)
[2025-05-08 15:15] LABS: Alanine Aminotransferase 17 U/L (0-31); Alkaline Phosphatase 65 U/L (39-117); Anion Gap 13 (12-20); Aspartate Amino Transferase 18 U/L (5-31); Bilirubin Total 0.7 mg/dL (0.0-1.0); Blood Urea Nitrogen 9 mg/dL (9-16); Calcium 8.7 mg/dL (8.4-10.2); Carbon Dioxide 25 mmol/L (22-29); Chloride 106 mmol/L (96-108); Estimated Glomerular Filt Rate > 60; Glucose Random 93 mg/dL (60-115); Potassium 3.5 mmol/L (3.3-5.1); Sodium 140 mmol/L (135-145); Total Protein 6.9 g/dL (6.5-8.0)
[2025-05-08 15:18] LABS: TSH reflex Free T4 1.41 uIU/mL (0.32-4.0)
== END 2025-05-08 11:26 | disposition home or self-care (01) ==
LOC: HO.CHCLDS 11:25
PROVIDERS: Visit Provider Internal Medicine
DX: R06.02 Shortness of breath (principal); R60.0 Localized edema
CPT/HCPCS: 36415; 80053; 82043; 82570; 84443; 85025

== ENCOUNTER 2025-05-19 14:23 | Outpatient (REF) | payer OTHER, SELFPAY ==
--- NOTE | ~2025-05-19 | XR_ITS ---
EXAMINATION: XR CHEST 2 VIEWS HISTORY: SOB/Edema lower limbs COMPARISON: Comparison is made with the prior examination dated 07/07/2020. FINDINGS: PA and lateral views of the chest are submitted. The lungs are expanded and clear. There is no pleural effusion, pneumothorax, or pulmonary vascular congestion. The heart is normal in size. There is mild degenerative disc disease of the spine. XR/XR chest 2V IMPRESSION: No acute cardiopulmonary abnormality. Electronically signed by: Reagan Centeno MD 05/19/2025 02:55 PM EDT
--- OUTSIDE RECORDS SUMMARY | 2025-05-19 14:56 | XMS_ITS | Encounter Summary ---
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; [...] Description 05/21/2025 2:00 PM EDT Office Visit [facility] OPTOMETRY [address] [place] [address] TarkaYisel, OD [address] [place] [address] 06/05/2025 10:45 AM EDT Office Visit [facility] CHC MED & PEDS [address] [place] [address] Patricia Espinosa MD [address] [place] [address] Scheduled Orders Name Type Priority Associated Diagnoses [...] EDT) Ferritin 33 10 - 250 ng/mL [facility] Blood Venous blood specimen / Unknown 04/23/2024 10:57 AM EDT 04/23/2024 2:22 PM EDT us Patricia Espinosa MD LAB BLOOD ORDERABLES Final Result Performing Organization Address City/[facility]/ZIP Co de Phone Number [facility] [address] [place] [phone] * Iron And Total Iron Binding Capacity (04/23/2024 10:57 AM EDT) Iron 51 30 - 160 mcg/dL [facility] Total Iron Binding Capacity 305 228 - 428 mcg/dL [facility] Percent Iron Saturation 17 15 - 50 % [facility] Unsaturated Iron Binding 254 ug/dL [facility] Blood Venous blood specimen / Unknown 04/23/2024 10:57 AM EDT 04/23/2024 2:22 PM EDT Patricia Espinosa MD LAB BLOOD ORDERABLES Final Result Performing Organization Address City/[facility]/ZIP Co de Phone Number [facility] [address] [place] [phone] * (ABNORMAL) Basic Metabolic Panel (04/23/2024 10:57 AM EDT) Sodium 141 135 - 145 mmol/L [facility] Potassium 4.0 3.3 - 5.1 mmol/L [facility] Chloride 107 96 - 108 mmol/L [facility] Carbon Dioxide 27 22 - 29 mmol/L [facility] Anion Gap 11(L) 12 - 20 [facility] Urea Nitrogen (BUN) 19(H) 9 - 16 mg/dL [facility] Creatinine, Serum 0.75 0.5 - 1.4 mg/dL [facility] Estimated Glomerular Filt Rate >60 [facility] Comment:NOTE: For -Am erican individuals, multiply the result by 1.210.Chronic Kidney Disease: Estimated GFR < 60 mL/min/1.91y7Mfxylo Kidney Disease: Estimated GFR < 15 mL/min/1.73m2 Glucose 92 60 - 115 mg/dL [facility] Calcium 9.2 8.4 - 10.2 mg/dL [facility] Blood Venous blood specimen / Unknown 04/23/2024 10:57 AM EDT 04/23/2024 2:22 PM EDT Patricia Espinosa MD LAB BLOOD ORDERABLES Final Result [facility] [address] [place] [phone] * Hemoglobin A1c (04/23/2024 10:51 AM EDT) Hemoglobin A1c 5.4 <6.0 % [facility] Comment:Hemoglobin A1C Refer ence Range Adults: 4.8 - 6.0 % Non diabetic: < 6.0 % Goal: < 7.0 %Additional Action Suggested: > 8.0 %Note: Hemoglobin A1c results are invalid for patients with abnormal amounts of HbF. Blood transfusions may impact the HbA1c concentration in the patient sample. Estimated Average Glucose 108 mg/dL [facility] Comment:eAG = Estimated ave rage glucose which is %A1C expressed asaverage glucose, using the formula of the M8W-FrzxcflOtrrjmp Glucose study (ADAG), Diabetes Care, Vol.31,#8,Jun. 2007 Blood Venous blood specimen / Unknown 04/23/2024 10:51 AM EDT 04/23/2024 2:22 PM EDT Patricia Espinosa MD LAB BLOOD ORDERABLES Final Result Performing Organization Address [facility] Co de Phone Number [facility] [address] [place] [phone] * Reticulocyte Count (04/23/2024 10:51 AM EDT) Reticulocytes Absolute 0.073 0.026 - 0.095 X10*6/uL [facility] Immature Retic Fraction 15.9 3.0 - 15.9 % [facility] Retic HGB Equivalent 31.2 30.0 - 35.0 pg [facility] Reticulocyte Percent 1.8 0.5 - 1.8 % [facility] Blood Venous blood specimen / Unknown 04/23/2024 10:51 AM EDT 04/23/2024 2:22 PM EDT Patricia Espinosa MD LAB BLOOD ORDERABLES Final Result Performing Organization Address [facility] de Phone Number [facility] [address] [place] [phone] * HPV mRNA E6/E7 w/Reflex to HPV Genotypes 16, 18/45 (04/23/2024 10:40 AM EDT) HPV nRNA E6/E7 Not Detected Not Detected [facility] Comment:Methodology: Transcr iption-Mediated AmplificationThis assay detects E6/E7 viral messenger RNA (mRNA) from 14high-risk HPV types (16,18,31,33,35,39,45,51,52,56,58,59,66,68).Cervical sources are required for HPV testing.If a vaginal source from a patient who has had atotal hysterectomy with removal of cervix wassubmitted, please contact the testing laboratoryfor alternative testing options.For additional information, please refer tohttp://education.[employer]/faq/ZJO130l6(This link if provided for information/educational purposes only.)THIS TEST WAS PERFORMED AT:[employer] [place] [phone] DELUNA MD HPV mRNA E6/E7 [facility] HPV 16 RNA [facility] HPV 18/45 RNA [facility] 04/23/2024 10:4 0 AM EDT 04/24/2024 11:38 AM EDT Patricia Espinosa MD LAB CYTOLOGY ORDERABLES Fin al Result [facility] [address] [place] [phone] documented in this encounter Visit Diagnoses Diagnosis Hypokalemia- Primary Hypopotassemia 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
== END 2025-05-19 14:24 | disposition home or self-care (01) ==
LOC: HO.XRAY 14:23
PROVIDERS: PCP Internal Medicine; Visit Provider Internal Medicine
DX: R05.1 Acute cough (principal); R06.02 Shortness of breath; I10 Essential (primary) hypertension
CPT/HCPCS: 71046

== ENCOUNTER → 2025-05-19 14:27 | Outpatient (BNV) | payer OTHER, SELFPAY | PROVIDERS: PCP Internal Medicine; Visit Provider Radiology Diagnostic Radiology | DX: R06.02 Shortness of breath (principal); R60.0 Localized edema | CPT/HCPCS: 71046 ==

== ENCOUNTER 2025-08-21 11:41 | Outpatient (REF) | payer OTHER, SELFPAY ==
[2025-08-21 14:31] LABS: MANUAL DIFF FLAG NO
[2025-08-21 14:36] LABS: Hematocrit 40.1 % (37.0-47.0); Hemoglobin 13.1 g/dl (12.0-16.0); Imm Gran Abs Auto 0.03 X10*3/uL (0.00-0.03); Imm Gran Pct Auto 0.4 % (0.0-0.4); Lymphocytes Absolute Auto 2.3 X10*3/uL (1.2-4.9); Mean Corpuscular HGB Conc 32.7 g/dl (31.0-35.0); Mean Corpuscular Hemoglobin 28.7 pg (27.0-33.0); Mean Corpuscular Volume 87.9 fL (80.0-98.0); NRBC Abs Auto 0.000 X10*3/uL (0.0-0.012); NRBC Pct Auto 0.0 /100WBC (0.0-0.2); Platelet Count 233 X10*3/uL (160-400); Red Blood Count 4.56 X10*6/uL (4.20-5.50); Reticulocytes Absolute 0.118 X10*6/uL (0.026-0.095); White Blood Count 6.8 X10*3/uL (4.8-10.8)
[2025-08-21 15:17] LABS: Iron 67 mcg/dL (30-160); Percent Iron Saturation 22 % (15-50); Total Iron Binding Capacity 299 mcg/dL (228-428); Unsaturated Iron Binding 232 ug/dL
[2025-08-21 15:32] LABS: Folate 5.2 ng/mL (> or = 4.0); Vitamin B12 558 pg/mL (200-900)
[2025-08-21 15:53] LABS: Ferritin 65 ng/mL (10-250)
[2025-08-22 08:34] LABS: HBS Num1 1.03 mIU/mL (0-7.99); ~Hepatitis B Surface Antibody NONREACTIVE (Nonreactive)
== END 2025-08-21 11:42 | disposition home or self-care (01) ==
LOC: HO.CHCLDS 11:41
PROVIDERS: Visit Provider Internal Medicine
DX: Z11.59 Encounter for screening for other viral diseases (principal); F31.62 Bipolar disorder, current episode mixed, moderate; D64.9 Anemia, unspecified; E66.813 Obesity, class 3; Z68.42 Body mass index [BMI] 45.0-49.9, adult
CPT/HCPCS: 36415; 82607; 82728; 82746; 83540; 85025; 85045; 86706